=== PATIENT | male | born 1955 | race Caucasian/White ===

== ENCOUNTER 2019-01-27 08:06 | Observation (INO) | payer OTHER, MEDICARE ==
--- NOTE | 2019-01-27 08:50 | EDM.PDOC ---
ED HPI GENERAL MEDICAL PROBLEM - General Stated Complaint: PAIN IN SHOULDER BLADE Time Seen by Provider: 01/27/19 08:15 Source of Information: Reports: Patient History Limitations: Reports: No Limitations - History of Present Illness INITIAL COMMENTS - FREE TEXT/NARRATIVE: Pt is 63 year old male with PMH of anxiety and HTN, presents to the emergency room with c/o upper back pain pain since 2 am today. Pt claims he had his supper and went to sleep. He woke up at 2 Am with pain between his shoulder blades. Pain was constant. There was no radiation of pain. No chest pain or shortness of breath. He claims his heart started to race. His racing heart resolved in few minutes, but continue to have the discomfort. No nausea or vomiting, no heart burn, no chest pain. Pt claims he had a dull pain all night which resolved today morning. Presently asymptomatic, but here to have him checked out. Onset: Today Onset Date: 01/27/19 Onset Time: 02:00 Duration: Resolved Prior to Arrival Location: Reports: Back Quality: Reports: Ache Severity: Mild Improves with: Reports: None Worsens with: Reports: None Associated Symptoms: Denies: Confusion, Chest Pain, Cough, Diaphoresis, Fever/ Chills, Headaches, Nausea/Vomiting, Rash, Seizure, Shortness of Breath, Syncope , Weakness Upper Back Pain Score (Numeric/FACES): 2 - Related Data Allergies Allergy/AdvReac Type Severity Reaction Status Date / Time No Known Allergies Allergy Verified 01/27/19 08:42 Home Meds: Home Meds Citalopram [Citalopram HBr] 15 mg PO DAILY 01/27/19 [History] Gabapentin [Neurontin] 600 mg PO BID 01/27/19 [History] LORazepam [Ativan] 1 mg PO [id number] PRN 01/27/19 [History] atorvaSTATin [Lipitor] 10 mg PO BEDTIME 01/27/19 [History] hydroCHLOROthiazide [Hydrochlorothiazide] 10 mg PO DAILY 01/27/19 [History] ED ROS GENERAL - Review of Systems Review Of Systems: See Below Constitutional: Denies: Fever, Chills, Malaise, Weakness, Night Sweats, Diaphoresis HEENT: Denies: Contact Lenses, Ear Pain, Rhinitis, Throat Pain Respiratory: Denies: Shortness of Breath, Cough, Sputum Cardiovascular: Reports: Palpitations. Denies: Chest Pain, Lightheadedness GI/Abdominal: Reports: Flatus. Denies: Abdominal Pain, Constipation, Diarrhea, Nausea, Vomiting Musculoskeletal: Reports: Back Pain. Denies: Shoulder Pain, Joint Pain, Joint Swelling Skin: Denies: Bruising, Pruritis, Rash Neurological: Denies: Confusion, Dizziness, Headache, Numbness, Tingling ED EXAM, GENERAL - Physical Exam Exam: See Below Exam Limited By: No Limitations General Appearance: Alert, WD/WN, No Apparent Distress, Other (asymtomatic) Eye Exam: Bilateral Eye: EOMI, PERRL Ears: Normal External Exam, Normal Canal, Hearing Grossly Normal, Normal TMs Ear Exam: Bilateral Ear: Auricle Normal, Canal Normal, TM normal Nose: Normal Inspection, Normal Mucosa, No Blood Throat/Mouth: Normal Inspection, Normal Lips, Normal Teeth, Normal Gums, Normal Oropharynx, Normal Voice, No Airway Compromise Head: Atraumatic, Normocephalic Neck: Normal Inspection, Supple, Non-Tender, Full Range of Motion Respiratory/Chest: No Respiratory Distress, Lungs Clear, Normal Breath Sounds, No Accessory Muscle Use, Chest Non-Tender Cardiovascular: Normal Peripheral Pulses, Regular Rate, Rhythm, No Edema, No Gallop, No JVD, No Murmur, No Rub Back Exam: Normal Inspection, Full Range of Motion, NT Extremities: Normal Inspection, Normal Range of Motion, Non-Tender, Normal Capillary Refill, No Pedal Edema Neurological: Alert, Oriented, CN II-XII Intact, Normal Cognition, Normal Gait, Normal Reflexes, No Motor/Sensory Deficits Skin Exam: Warm, Intact EKG INTERPRETATION EKG Date: 01/27/19 Rhythm: NSR [place]: Normal P-Wave: Present QRS: Normal ST-T: Normal EKG Interpretation Comments: NSR Course - Vital Signs Text/Narrative:: Pt's Clinical exam is normal. His Vitals are stable. HE is asymptomatic in the emergency room. Considering his his EKG was done, which is in NSR. Routine cardiac workup was ordered. His CBC and CMP are normal. Troponin is mildly elevated at 0.062 and the lab normal is 0.06. This might be lab error, but as patient did have short episode of palpitation last night( which appears like anxiety , as patient has history of anxiety and on medications), will admit for observation and get second set or troponin at 2Pm today and followup. Pt understands and agrees with the plan. Last Recorded V/S: Last Vital Signs Temp 98.4 F 01/27/19 08:23 Pulse 72 01/27/19 09:21 Resp 18 01/27/19 09:21 BP 134/81 01/27/19 09:21 Pulse Ox 98 01/27/19 09:21 - Orders/Labs/Meds Orders: Active Orders 24 hr Category Date Time Status Patient Status [ADT] Routine ADT 01/27/19 09:25 Ordered Bedrest Bathroom Privileges [RC] ASDIRECTED Care 01/27/19 09:24 Ordered Cardiac Monitoring [RC] CONTINUOUS Care 01/27/19 09:26 Ordered EKG Documentation Completion [RC] ASDIRECTED Care 01/27/19 08:28 Active EKG Documentation Completion [RC] ASDIRECTED Care 01/27/19 09:30 Ordered Height and Weight [RC] UPON Care 01/27/19 09:24 Ordered Intake and Output [RC] QSHIFT Care 01/27/19 09:26 Ordered Oxygen Therapy [RC] PRN Care 01/27/19 09:25 Ordered VTE/DVT Education [RC] Per Unit Routine Care 01/27/19 09:25 Ordered Vital Signs [RC] Q4H Care 01/27/19 09:25 Ordered Clear Liquid Diet [DIET] Diet 01/27/19 Lunch Ordered Chest 1V Frontal [CR] Stat Exams 01/27/19 08:32 Taken TROPONIN I [CHEM] Routine Lab 01/27/19 14:00 Ordered Sodium Chloride 0.9% [Saline Flush] Med 01/27/19 09:24 Ordered 10 ml FLUSH ASDIRECTED PRN Peripheral IV Insertion Adult [OM.PC] Routine Oth 01/27/19 09:24 Ordered Resuscitation Status Routine Resus Stat 01/27/19 09:24 Ordered EKG 12 Lead [EK] Routine Ther 01/27/19 08:28 Ordered EKG 12 Lead [EK] Routine Ther 01/27/19 14:00 Ordered Medication Orders Sodium Chloride (Saline Flush) 10 ml FLUSH ASDIRECTED PRN PRN Reason: Keep Vein Open Labs: Laboratory Tests 01/27/19 01/27/19 Range/Units 08:40 08:40 WBC 5.6 (4.0-11.0) K/uL RBC 4.88 (4.50-6.50) M/uL Hgb 14.3 (13.0-18.0) g/dL Hct 42.5 (40.0-54.0) % MCV 87 (76-96) fL MCH 29.3 (27.0-32.0) pg MCHC 33.6 (31.0-35.0) g/dL RDW 13.6 (11.0-16.0) % Plt Count 198 (150-400) K/uL MPV 9.9 (6.0-10.0) fL Neut % (Auto) 71.3 H (45.0-70.0) % Lymph % (Auto) 17.9 L (20.0-40.0) % [place] % (Auto) 8.7 (3.0-10.0) % Eos % (Auto) 1.6 (1.0-5.0) % Baso % (Auto) 0.5 (0.0-0.5) % Neut # (Auto) 4.02 (2.00-7.50) K/uL Lymph # (Auto) 1.01 L (1.50-4.00) K/uL [place] # (Auto) 0.49 (0.20-0.80) K/uL Eos # (Auto) 0.09 (0.04-0.40) K/uL Baso # (Auto) 0.03 (0.02-0.10) K/uL Sodium 140 (136-145) mmol/L Potassium 4.2 (3.5-5.1) mmol/L Chloride 104 (98-107) mmol/L Carbon Dioxide 25.2 (21.0-32.0) mmol/L Anion Gap 15.0 (5.0-15.0) mmol/L BUN 22 (8-26) mg/dL Creatinine 1.01 (0.70-1.30) mg/dL Est Cr Clr Drug Dosing 84.78 mL/min Estimated GFR (MDRD) > 60 (>60) MLS/MIN BUN/Creatinine Ratio 21.8 (6-25) Glucose 110 H (74-100) mg/dL Calcium 8.3 L (8.5-10.1) mg/dL Total Bilirubin 0.3 (0.0-1.0) mg/dL AST 18 (15-37) U/L ALT 29 (12-78) U/L Alkaline Phosphatase 74 (46-116) U/L Troponin I 0.062 H* (0.000-0.060) ng/mL Total Protein 6.6 (6.4-8.2) g/dL Albumin 3.4 (3.4-5.0) g/dL Globulin 3.2 (2.2-4.2) g/dL Albumin/Globulin Ratio 1.1 (0.8-2.0) Meds: Medications Generic Name Dose Route Start Last Admin Trade Name Freq PRN Reason Stop Dose Admin Sodium Chloride 10 ml 01/27/19 09:24 Saline Flush FLUSH ASDIRECTED PRN Keep Vein Open Discontinued Medications Generic Name Dose Route Start Last Admin Trade Name Freq PRN Reason Stop Dose Admin Aspirin 364 mg 01/27/19 09:28 Ecotrin PO 01/27/19 09:29 STAT STA Departure - Departure Time of Disposition: 09:30 Disposition: Refer to Observation Condition: Fair Clinical Impression: Elevated troponin - Discharge Information *PRESCRIPTION DRUG MONITORING PROGRAM REVIEWED*: Not Applicable *COPY OF PRESCRIPTION DRUG MONITORING REPORT IN PATIENT MARIE: Not Applicable Referrals: PCP,None [Primary Care Provider] - - Problem List & Annotations (1) Elevated troponin SNOMED Code(s): 225459722, 658836990, 301500465 Code(s): R74.8 - ABNORMAL LEVELS OF OTHER SERUM ENZYMES Status: Acute Current Visit: Yes - Problem List Review Problem List Initiated/Reviewed/Updated: Yes - My Orders Last 24 Hours: My Active Orders 01/27/19 08:28 EKG Documentation Completion [RC] ASDIRECTED EKG 12 Lead [EK] Routine 01/27/19 08:32 Chest 1V Frontal [CR] Stat 01/27/19 09:24 Bedrest Bathroom Privileges [RC] ASDIRECTED Height and Weight [RC] UPON Sodium Chloride 0.9% [Saline Flush] 10 ml FLUSH ASDIRECTED PRN Peripheral IV Insertion Adult [OM.PC] Routine Resuscitation Status Routine 01/27/19 09:25 Patient Status [ADT] Routine Oxygen Therapy [RC] PRN VTE/DVT Education [RC] Per Unit Routine Vital Signs [RC] Q4H 01/27/19 09:26 Cardiac Monitoring [RC] CONTINUOUS Intake and Output [RC] QSHIFT 01/27/19 09:30 EKG Documentation Completion [RC] ASDIRECTED 01/27/19 14:00 TROPONIN I [CHEM] Routine EKG 12 Lead [EK] Routine 01/27/19 Lunch Clear Liquid Diet [DIET] - Assessment/Plan Last 24 Hours: My Active Orders 01/27/19 08:28 EKG Documentation Completion [RC] ASDIRECTED EKG 12 Lead [EK] Routine 01/27/19 08:32 Chest 1V Frontal [CR] Stat 01/27/19 09:24 Bedrest Bathroom Privileges [RC] ASDIRECTED Height and Weight [RC] UPON Sodium Chloride 0.9% [Saline Flush] 10 ml FLUSH ASDIRECTED PRN Peripheral IV Insertion Adult [OM.PC] Routine Resuscitation Status Routine 01/27/19 09:25 Patient Status [ADT] Routine Oxygen Therapy [RC] PRN VTE/DVT Education [RC] Per Unit Routine Vital Signs [RC] Q4H 01/27/19 09:26 Cardiac Monitoring [RC] CONTINUOUS Intake and Output [RC] QSHIFT 01/27/19 09:30 EKG Documentation Completion [RC] ASDIRECTED 01/27/19 14:00 TROPONIN I [CHEM] Routine EKG 12 Lead [EK] Routine 01/27/19 Lunch Clear Liquid Diet [DIET] Assessment:: Mild elevation of troponin Plan: Pt's Clinical exam is normal. His Vitals are stable. HE is asymptomatic in the emergency room. Considering his his EKG was done, which is in NSR. Routine cardiac workup was ordered. His CBC and CMP are normal. Troponin is mildly elevated at 0.062 and the lab normal is 0.06. This might be lab error, but as patient did have short episode of palpitation last night( which appears like anxiety , as patient has history of anxiety and on medications), will admit for observation and get second set or troponin at 2Pm today and followup. Pt understands and agrees with the plan.
[2019-01-27] MEDS ORDERED: Sodium Chloride 0.9% 10 ML Syringe FLUSH PRN (09:24)
[2019-01-27] MEDS ORDERED: Aspirin 325 MG Tab.EC PO STA (09:28)
--- NOTE | 2019-01-27 11:06 | CR ---
Date of Service 01/27/19 Clinical Data: interscapular pain, palpitations AP PORTABLE CHEST: No priors. The heart size is normal. The lungs are clear. No pneumothorax. No pleural effusions. No evidence of acute intrathoracic disease. [id number] MTDD
--- NOTE | 2019-01-27 15:19 | PCM.DCSUM1 ---
Discharge Summary - Hospital Course Free Text/Narrative:: Pt was admitted for serial cardiac enzymes. his first set showed a troponin of 0.062 and the lab normal is 0.06. Apparently patient does not have any typical or atypical cardiac symptoms. But as his troponin is minimally elevated, i did admit patient for observation and second set of troponin. Pt has remained asymptomatic. Also his manager cardiac shows normal sinus rhythm. His second set of cardiac enzymes is negative. Pt reassured that he does not have cardiac injury or OH. His interscapular pain last night might be nonspecific. Advised to followup with his primary care provider next week. If he continue to have the problem with palpations , should have Holter monitoring. Brief History: Presented to emergency room with c/o interscapular pain with palpitation around 2 am today. Kindly see H&P for details. Diagnosis: Stroke: No - Discharge Data Discharge Date: 01/27/19 Discharge Disposition: Home, Self-Care 01 Condition: Good - Discharge Diagnosis/Problem(s) (1) Elevated troponin SNOMED Code(s): 109675496, 171257953, [id number] ICD Code: R74.8 - ABNORMAL LEVELS OF OTHER SERUM ENZYMES Status: Acute Current Visit: Yes - Patient Instructions Diet: Regular Diet as Tolerated Fluid Restriction: 1500 mL Activity: As Tolerated - Discharge Plan *PRESCRIPTION DRUG MONITORING PROGRAM REVIEWED*: Not Applicable *COPY OF PRESCRIPTION DRUG MONITORING REPORT IN PATIENT MARIE: Not Applicable Home Medications: Home Meds Citalopram [Citalopram HBr] 15 mg PO DAILY 01/27/19 [History] Gabapentin [Neurontin] 600 mg PO BID 01/27/19 [History] LORazepam [Ativan] 1 mg PO [id number] PRN 01/27/19 [History] atorvaSTATin [Lipitor] 10 mg PO BEDTIME 01/27/19 [History] hydroCHLOROthiazide [Hydrochlorothiazide] 10 mg PO DAILY 01/27/19 [History] Patient Handouts: Acute Back Pain, Adult Referrals: PCP,None [Primary Care Provider] - - Discharge Summary/Plan Comment DC Time >30 min.: Yes Discharge Summary/Plan Comment: Pt reassured that he does not have cardiac injury or [place]. His interscapular pain last night might be nonspecific. Advised to followup with his primary care provider next week. If he continue to have the problem with palpations , should have Holter monitoring. - General Info Date of Service: 01/27/19 Functional Status: Reports: Pain Controlled, Tolerating Diet, Ambulating, Urinating - Review of Systems General: Denies: Fever, Weakness, Malaise HEENT: Denies: Eye Pain, Headaches, Sore Throat Pulmonary: Denies: Shortness of Breath, Cough, Sputum Cardiovascular: Denies: Chest Pain, Lightheadedness Gastrointestinal: Denies: Abdominal Pain, Diarrhea, Nausea, Vomiting Genitourinary: Denies: Dysuria, Frequency Musculoskeletal: Denies: Joint Pain, Joint Swelling Skin: Denies: Bruising, Pruritis, Rash Neurological: Denies: Confusion, Dizziness, Headache, Numbness, Tingling - Patient Data Vitals - Most Recent: Last Vital Signs Temp 98.6 F 01/27/19 09:25 Pulse 72 01/27/19 09:25 Resp 18 01/27/19 09:25 BP 134/81 01/27/19 09:25 Pulse Ox 98 01/27/19 09:25 Weight - Most Recent: 113.852 kg I&O - Last 24 hours: Intake & Output 01/27/19 01/27/19 01/27/19 06:59 14:59 22:59 Output Total 200 Balance -200 Lab Results - Last 24 hrs: Laboratory Results - last 24 hr 01/27/19 01/27/19 01/27/19 Range/Units 08:40 08:40 14:20 WBC 5.6 (4.0-11.0) K/uL RBC 4.88 (4.50-6.50) M/uL Hgb 14.3 (13.0-18.0) g/dL Hct 42.5 (40.0-54.0) % MCV 87 (76-96) fL MCH 29.3 (27.0-32.0) pg MCHC 33.6 (31.0-35.0) g/dL RDW 13.6 (11.0-16.0) % Plt Count 198 (150-400) K/uL MPV 9.9 (6.0-10.0) fL Neut % (Auto) 71.3 H (45.0-70.0) % Lymph % (Auto) 17.9 L (20.0-40.0) % [place] % (Auto) 8.7 (3.0-10.0) % Eos % (Auto) 1.6 (1.0-5.0) % Baso % (Auto) 0.5 (0.0-0.5) % Neut # (Auto) 4.02 (2.00-7.50) K/uL Lymph # (Auto) 1.01 L (1.50-4.00) K/uL [place] # (Auto) 0.49 (0.20-0.80) K/uL Eos # (Auto) 0.09 (0.04-0.40) K/uL Baso # (Auto) 0.03 (0.02-0.10) K/uL Sodium 140 (136-145) mmol/L Potassium 4.2 (3.5-5.1) mmol/L Chloride 104 (98-107) mmol/L Carbon Dioxide 25.2 (21.0-32.0) mmol/L Anion Gap 15.0 (5.0-15.0) mmol/L BUN 22 (8-26) mg/dL Creatinine 1.01 (0.70-1.30) mg/dL Est Cr Clr Drug Dosing 84.78 mL/min Estimated GFR (MDRD) > 60 (>60) MLS/MIN BUN/Creatinine Ratio 21.8 (6-25) Glucose 110 H (74-100) mg/dL Calcium 8.3 L (8.5-10.1) mg/dL Total Bilirubin 0.3 (0.0-1.0) mg/dL AST 18 (15-37) U/L ALT 29 (12-78) U/L Alkaline Phosphatase 74 (46-116) U/L Troponin I 0.062 H* 0.052 (0.000-0.060) ng/mL Total Protein 6.6 (6.4-8.2) g/dL Albumin 3.4 (3.4-5.0) g/dL Globulin 3.2 (2.2-4.2) g/dL Albumin/Globulin Ratio 1.1 (0.8-2.0) Med Orders - Current: Current Medications Sodium Chloride (Saline Flush) 10 ml FLUSH ASDIRECTED PRN PRN Reason: Keep Vein Open Discontinued Medications Aspirin (Ecotrin) 364 mg PO STAT STA Stop: 01/27/19 09:29 Last Admin: 01/27/19 09:28 Dose: 364 mg - Exam General: Reports: Alert, Oriented HEENT: Reports: Pupils Equal, Pupils Reactive, EOMI, Mucous Membr. Moist/[place] Neck: Reports: Supple Lungs: Reports: Clear to Auscultation, Normal Respiratory Effort Cardiovascular: Reports: Regular Rate, Regular Rhythm GI/Abdominal Exam: Normal Bowel Sounds, Soft, Non-Tender, No Organomegaly, No Distention, No Abnormal Bruit, No Mass, Pelvis Stable Extremities: Normal Inspection, Normal Range of Motion, Non-Tender, No Pedal Edema, Normal Capillary Refill Skin: Reports: Warm, Intact
== END 2019-01-27 15:16 | disposition home or self-care (01) ==
LOC: LB.ED 08:06 → LB.MS 09:24
PROVIDERS: ADMIT Family Medicine; ATTEND Family Medicine
DX: R74.8 Abnormal levels of other serum enzymes (principal); I10 Essential (primary) hypertension; F41.9 Anxiety disorder, unspecified; Z79.899 Other long term (current) drug therapy
CPT/HCPCS: 36415; 71045; 80053; 84484; 85025; 93005; 99284; A9270; G0378